=== PATIENT | female | born 1995 | race Hispanic/Latino ===

== ENCOUNTER 2017-05-06 20:48 | Emergency (ER) | payer SELFPAY | END 2017-05-06 21:58 | disposition home or self-care (01) | LOC: ERS 20:48 | DX: J01.90 Acute sinusitis, unspecified (principal); F41.9 Anxiety disorder, unspecified | CPT/HCPCS: 87081; 87430; 99283 ==

== ENCOUNTER 2017-06-25 10:31 | Emergency (ER) | payer SELFPAY ==
[2017-06-25] MEDS ORDERED: Dexamethasone 4 mg/ml Vial ONE (10:59)
== END 2017-06-25 12:24 | disposition home or self-care (01) ==
LOC: ERS 10:31
DX: J02.9 Acute pharyngitis, unspecified (principal); F43.10 Post-traumatic stress disorder, unspecified; F41.9 Anxiety disorder, unspecified
CPT/HCPCS: 87081; 87430; 96372; J1100

== ENCOUNTER 2017-07-14 11:59 | Emergency (ER) | payer SELFPAY ==
[2017-07-14] MEDS ORDERED: Dexamethasone 10 MG/ML VIAL ONE (12:55)
[2017-07-14] MEDS ORDERED: Clindamycin 150 MG CAP ONE (12:55)
[2017-07-14] MEDS ORDERED: Ketorolac Tromethamine 60 MG/2 ML VIAL ONE (12:55)
== END 2017-07-14 13:23 | disposition home or self-care (01) ==
LOC: ERS 11:59
DX: K04.7 Periapical abscess without sinus (principal); F41.9 Anxiety disorder, unspecified; F43.10 Post-traumatic stress disorder, unspecified
CPT/HCPCS: 96372; J1100; J1885

== ENCOUNTER 2018-01-03 07:24 | Emergency (ER) | payer SELFPAY ==
--- NOTE | 2018-01-03 09:17 | RAD ---
LEFT KNEE 4 VIEWS: Date: 01/03/18 HISTORY: Left knee pain. FINDINGS/IMPRESSION: No fracture or dislocation is identified. POS: [facility]
--- NOTE | 2018-01-03 09:18 | RAD ---
RIGHT TIBIA AND FIBULA 2 VIEWS: Date: 01/03/18 HISTORY: 22-year-old female with history of left knee pain and abrasion following trauma. FINDINGS/IMPRESSION: No fracture, dislocation, or other acute process. POS: [facility]
== END 2018-01-03 08:40 | disposition home or self-care (01) ==
LOC: ERS 07:24
DX: S80.212A Abrasion, left knee, initial encounter (principal); S80.811A Abrasion, right lower leg, initial encounter; F41.9 Anxiety disorder, unspecified; F43.10 Post-traumatic stress disorder, unspecified; V87.8XXA Person injured in other specified noncollision transport accidents involving motor vehicle (traffic), initial encounter

== ENCOUNTER 2018-06-20 14:20 | Emergency (ER) | payer SELFPAY ==
[2018-06-20] MEDS ORDERED: HYDROcodone/Acetaminophen 5/325 mg Tablet ONE (17:17)
== END 2018-06-20 16:27 | disposition home or self-care (01) ==
LOC: ERS 14:20
DX: K02.9 Dental caries, unspecified (principal); F41.9 Anxiety disorder, unspecified; F43.10 Post-traumatic stress disorder, unspecified
CPT/HCPCS: 99282

== ENCOUNTER 2018-08-04 16:28 | Emergency (ER) | payer SELFPAY ==
[2018-08-04] MEDS ORDERED: HYDROcodone/Acetaminophen 5/325 mg Tablet ONE (17:25)
== END 2018-08-04 17:29 | disposition home or self-care (01) ==
LOC: ERS 16:28
DX: K08.89 Other specified disorders of teeth and supporting structures (principal); F41.9 Anxiety disorder, unspecified; F43.10 Post-traumatic stress disorder, unspecified
CPT/HCPCS: 99283

== ENCOUNTER 2022-02-02 22:15 | Emergency (ER) | payer OTHER, SELFPAY ==
[2022-02-02] MEDS ORDERED: Ketorolac Tromethamine 30 MG/ML VIAL ONE (23:49)
== END 2022-02-03 00:27 | disposition home or self-care (01) ==
LOC: ERS 22:15
DX: S43.402A Unspecified sprain of left shoulder joint, initial encounter (principal); S93.402A Sprain of unspecified ligament of left ankle, initial encounter; V89.2XXA Person injured in unspecified motor-vehicle accident, traffic, initial encounter
CPT/HCPCS: 71045; 96372; J1885